=== PATIENT | male | born 1955 | race Caucasian/White ===

== ENCOUNTER 2018-05-16 07:29 | Day surgery (SDC) | payer BC, MEDICARE ==
[~2018-05-16 07:29] MED LIST: BRIMONIDINE 0.2% OPHTH DROPS 5 ML ONE; BSS/LIDOCAINE/EPINEPHRINE 1 ML SYRINGE ONE; CYCLOPENTOLATE 1% OPHTH DROPS 2 ML ONE; EPINEPHrine 1 MG/ML AMP ONE; KETOROLAC 0.45% OPHTH DROPS ONE; PHENYLEPHRINE 2.5% OPHTH 2 ML DROPS ONE; PROPARACAINE 0.5% OPHTH DROPS 15 ML ONE; TIMOLOL 0.5% OPHTH DROPS ONE; TRIAMCIN/MOXIFLOX OPHTHALMIC 0.6 ML VIAL IO ONE; VANCOMYCIN OPHTHALMI 8MG/0.8ML 8 MG/0.8 ML SYRINGE IO ONE
[2018-05-16] MEDS ORDERED: LACTATED RINGERS 1,000 ML IV ONE (07:38)
[2018-05-16] MEDS ORDERED: CYCLOPENTOLATE 1% OPHTH DROPS 2 ML RIGHTEYE ONE (07:45)
[2018-05-16] MEDS ORDERED: KETOROLAC 0.45% OPHTH DROPS RIGHTEYE ONE (07:45)
[2018-05-16] MEDS ORDERED: PROPARACAINE 0.5% OPHTH DROPS 15 ML RIGHTEYE ONE ×2 (07:45→08:38)
[2018-05-16] MEDS ORDERED: PHENYLEPHRINE 2.5% OPHTH 2 ML DROPS RIGHTEYE ONE (07:45)
--- NOTE | 2018-05-16 07:49 | ANESTHESIA ---
Pre-Anesthesia VS, & Labs - Diagnosis Right senile combined cataract - Procedure Right phaco with IOL implant - NPO >8 hours, Other (fluid at 2300) Home Medications and Allergies Allergies/Adverse Reactions: Allergies Allergy/AdvReac Type Severity Reaction Status Date / Time amoxicillin Allergy Respiratory Verified 05/16/18 08:04 Sulfa (Sulfonamide Allergy Unknown Verified 05/16/18 08:09 Antibiotics) Anes History & Medical History - Anesthetic History Anesthesia Complications: reports: No previous complications, Other-see comment (History of vaso vagal incident, unconscious for 45 minutes) Family history of Anesthesia Complications: Denies Family history of Malignant Hyperthermia: Denies - Medical History Cardiovascular: reports: Hypertension, Angina Pulmonary: reports: None Gastrointestinal: reports: GERD Urinary: reports: None Neuro: reports: None Musculoskeletal: reports: Osteoarthritis, Chronic back pain, Other (Hx of broken back) Endocrine/Autoimmune: reports: Type 2 diabetes Blood Disorders: reports: None Skin: reports: None Smoking Status: Never smoker Psychosocial: reports: No issues indicated - Surgical History Eyes Ears Nose Throat (EENT): Cataracts, Other (Detached retina) Orthopedic: Amputation Exam General: Alert Dental: WNL Mouth Opening: Greater than 4 Fingerbreadths Neck Mobility: Normal Mallampati classification: II Thyromental Distance: greater than 6 cm Respiratory: Lungs clear Cardiovascular: Regular rate Mental/Cognitive Status: Alert/Oriented X3 Cognitive Status: Within normal limits Plan Anesthesia Type: MAC Consent for Procedure(s) Verified and Reviewed: Yes Code Status: Attempt Resuscitation ASA classification: 2-Mild systemic disease Is this case an emergency?: No
[2018-05-16] MEDS ORDERED: VANCOMYCIN OPHTHALMI 8MG/0.8ML 8 MG/0.8 ML SYRINGE IO ONE ×2 (08:35)
[2018-05-16] MEDS ORDERED: CHONDR SULF/HYALURONATE SYRINGE IO ONE (08:36)
[2018-05-16] MEDS ORDERED: EPINEPHrine 1 MG/ML AMP IR ONE (08:36)
[2018-05-16] MEDS ORDERED: BRIMONIDINE 0.2% OPHTH DROPS 5 ML OPTH ONE (08:36)
[2018-05-16] MEDS ORDERED: TRIAMCIN/MOXIFLOX/VANCO 1 ML VIAL IO ONE ×2 (08:37)
[2018-05-16] MEDS ORDERED: BSS/LIDOCAINE/EPINEPHRINE 1 ML SYRINGE IO ONE ×2 (08:37)
[2018-05-16] MEDS ORDERED: TIMOLOL 0.5% OPHTH DROPS OPTH ONE (08:37)
[2018-05-16] MEDS ORDERED: MIDAZOLAM 2 MG/2 ML VIAL IVP ONE (08:47)
[2018-05-16 09:03] VITALS: BP 122/73
--- NOTE | 2018-05-16 10:09 | OPERATIVE REPORT ---
DATE OF SERVICE: 05/16/2018 Physician: Vince Matamoros MD PREOPERATIVE DIAGNOSIS: Visually significant cataract, right eye. This is his second cataract surge ry. Cataract surgery was performed in 2009 on the left eye after having a corneal transplant for ker atoconus and a scleral buckle for retinal detachment. 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 POSTOPERATIVE DIAGNOSIS: Visually significant cataract, right eye. This is his second cataract surg lola. Cataract surgery was performed in 2009 on the left eye after having a corneal transplant for ke ratoconus and a scleral buckle for retinal detachment. Also, the right eye is affected by retinopath y of prematurity and has also had some retinal break issues. PROCEDURE: Phacoemulsification with posterior chamber intraocular lens implant, right eye. SURGEON: Vince Matamoros MD ANESTHESIA: Monitored anesthesia care. COMPLICATIONS: None. OPERATIVE INDICATIONS: This is a 63-year-old man with progressive vision loss in the right eye due t o 2+ nuclear sclerotic and 2+ cortical cataract. Best corrected visual acuity was 20/50 with glare t o 20/200 in the right eye. Indications for surgery are overall decrease in vision, difficulty seeing words on a computer screen, and difficulty reading, difficulty seeing words, closed captioning, or g rufus scores on TV, difficulty seeing street signs, and difficulty tracking a golf ball. He was consen jayesh at length concerning the risks and benefits of cataract surgery, after which he expressed a luis alberto e to proceed with surgery. OPERATIVE PROCEDURE: The patient was taken into OR #3 and placed under monitored anesthesia care. A surgical timeout was conducted, confirming correct patient, correct procedure, and correct surgical site. He was given topical anesthesia and then prepped and draped in the usual sterile fashion. The eye was entered at the 12 and 9 o'clock positions. Intracameral Shugarcaine was injected into the a nterior chamber, followed by Viscoat. A continuous-tear curvilinear capsulorrhexis was performed. T he nucleus was hydrodissected and phacoemulsified. The cortex was evacuated using automated infusion and aspiration. Provisc was injected into the capsular bag, and a 14.0 diopter intraocular lens was inserted into the bag. Approximately 0.8 mL of a mixture of triamcinolone, moxifloxacin, and vancom ycin was injected subconjunctivally to the superior quadrant for infection and inflammation prophylax is. I and A was used to evacuate viscoelastic material. The eye was inflated to physiologic pressur e using a balanced salt solution and found to be watertight. The patient was taken from the [facility] room in good condition and given postoperative instructions. TD: 05/16/2018 09:03
== END 2018-05-16 07:30 | disposition home or self-care (01) ==
LOC: SDS 07:29
PROVIDERS: ATTEND Ophthalmology
PROC: 08RJ3JZ Replacement of Right Lens with Synthetic Substitute, Percutaneous Approach (ICD-10-PCS; principal; 2018-05-16 08:30)
DX: H25.811 Combined forms of age-related cataract, right eye (principal); E11.9 Type 2 diabetes mellitus without complications; Z79.4 Long term (current) use of insulin; I10 Essential (primary) hypertension
CPT/HCPCS: 66984; A9270; J3490; J7120; V2632